=== PATIENT | female | born 1990 | race Caucasian/White ===

== ENCOUNTER 2017-06-06 19:13 | Emergency (ER) | payer MEDICARE, MEDICAID ==
[~2017-06-06] VITALS: Ht 160 cm; Wt 127.3 kg
[2017-06-06] MEDS ORDERED: SODIUM CHLORIDE FLUSH 10ML SYR IVF ONE (20:00)
[2017-06-06] MEDS ORDERED: SODIUM CHLORIDE 0.9% 1,000ML IV ONE (20:00)
[2017-06-06] MEDS ORDERED: KETOROLAC 30 MG/1 ML IVPush ONE (20:00)
[2017-06-06 20:27] LABS: HEMATOCRIT 43.5 % (34.6-47.8); HEMOGLOBIN 14.6 g/dL (11.7-16.4); WHITE BLOOD COUNT 14.1 x10^3/uL (3.4-10)
[2017-06-06 20:35] LABS: ASPARTATE AMINO TRANSFERASE 26 U/L (15-37); BLOOD UREA NITROGEN 18 mg/dL (7-18)
[2017-06-06] MEDS ORDERED: KETOROLAC 30 MG/1 ML ONE (20:52)
[2017-06-06] MEDS ORDERED: ONDANSETRON 2MG/ML, 2ML ONE (20:56)
[2017-06-06] MEDS ORDERED: MORPHINE SULFATE 4 MG/ML, 1ML ONE ×2 (20:56→22:49)
[2017-06-06] MEDS ORDERED: ONDANSETRON 2MG/ML, 2ML IVPush ONE (21:00)
[2017-06-06] MEDS: MORPHINE SULFATE 4 MG/ML, 1ML IVPush PRN ×2 (21:03→22:48)
[2017-06-06] MEDS ORDERED: OXYcodone/APAP 10/325MG TABLET ONE (23:50)
[2017-06-06 23:56] VITALS: BP 132/61
[2017-06-07] MEDS ORDERED: OXYcodone/APAP 10/325MG TABLET PO ONE
== END 2017-06-06 23:59 | disposition home or self-care (01) ==
LOC: ED 23:53
DX: S39.012A Strain of muscle, fascia and tendon of lower back, initial encounter (principal); R10.32 Left lower quadrant pain; J45.909 Unspecified asthma, uncomplicated; X58.XXXA Exposure to other specified factors, initial encounter; Y93.89 Activity, other specified; Y92.89 Other specified places as the place of occurrence of the external cause; Y99.9 Unspecified external cause status
CPT/HCPCS: 36415; 74177; 80053; 81003; 84703; 85025; 96361; 96374; 96375; 96376; 99285; J1885; J2405; J7030

== ENCOUNTER 2019-04-30 11:08 | Emergency (ER) | payer MEDICARE, MEDICAID ==
[~2019-04-30] VITALS: Ht 160 cm; Wt 105.0 kg
[2019-04-30 12:05] LABS: ALBUMIN 3.5 g/dL (3.4-5.0); ANION GAP 6 mmol/L (5-15); CALCIUM 8.7 mg/dL (8.5-10.1); CHLORIDE 113 mmol/L (98-107); CREATININE 0.81 mg/dL (0.55-1.02)
--- NOTE | 2019-04-30 12:31 | NUR ---
TO ROOM FROM LOBBY. NAD.
[2019-04-30] MEDS ORDERED: DIPHENHYDRAMINE 50 MG/ML, 1ML ONE (12:52)
[2019-04-30] MEDS ORDERED: KETOROLAC 30 MG/1 ML ONE (12:53)
[2019-04-30] MEDS ORDERED: METOCLOPRAMIDE 5 MG/ML, 2ML ONE (12:53)
[2019-04-30 13:00] LABS: BASOPHILS # (AUTO) 0.02 x10^3/uL (0-0.1); BASOPHILS % (AUTO) 0 % (0-1); EOSINOPHILS # (AUTO) 0.28 x10^3/uL (0-0.4); EOSINOPHILS % (AUTO) 3 % (1-7); LYMPHOCYTES # (AUTO) 2.05 x10^3/uL (1-3.4); LYMPHOCYTES % (AUTO) 24 % (22-44); MD NO; MEAN CORPUSCULAR HEMOGLOBIN 28.6 pg (27.0-34.8); MEAN CORPUSCULAR HGB CONC 32.6 g/dL (32.4-35.8); MEAN CORPUSCULAR VOLUME 87.6 fL (80-100); MEAN PLATELET VOLUME 9.1 fL (7.4-10.4); MONOCYTES # (AUTO) 0.56 x10^3/uL (0.2-0.8); MONOCYTES % (AUTO) 7 % (2-9); NEUTROPHILS # (AUTO) 5.78 x10^3/uL (1.8-6.8); NEUTROPHILS % (AUTO) 66 % (42-75); PLATELET COUNT 233 x10^3/uL (130-400); RED BLOOD COUNT 5.18 x10^6/uL (3.82-5.3); RED CELL DISTRIBUTION WIDTH 15.7 % (9.6-15.2)
[2019-04-30] MEDS ORDERED: DIPHENHYDRAMINE 50 MG/ML, 1ML IVPush ONE (13:00)
[2019-04-30] MEDS ORDERED: DIPHENHYDRAMINE 25 MG CAPSULE PO ONE (13:00)
[2019-04-30] MEDS ORDERED: KETOROLAC 30 MG/1 ML IVPush ONE (13:00)
[2019-04-30] MEDS ORDERED: METOCLOPRAMIDE 5 MG/ML, 2ML IVPush ONE (13:00)
[2019-04-30] MEDS ORDERED: METOCLOPRAMIDE 10MG TABLET PO ONE (13:00)
[2019-04-30] MEDS ORDERED: KETOROLAC 30 MG/1 ML IM ONE (13:00)
--- NOTE | 2019-04-30 13:04 | NUR ---
PT C/O LYNN FOR LAST WEEK WITH NO HX OF HEADACHES. PT REPORTS NAUSEA AND PHOTOPHOBIA. PT DENIES ANY UNILATERAL WAEKNESS, SLURRED SPEECH, OR BLURRED VISION. PT MEDICATED PER MD ORDER. PT IN CT NOW.
[2019-04-30] MEDS ORDERED: ACETAMINOPHEN 325 MG TABLET ONE (14:17)
[2019-04-30 14:32] VITALS: BP 119/71
== END 2019-04-30 14:35 | disposition home or self-care (01) ==
LOC: ED 14:33
DX: G43.111 Migraine with aura, intractable, with status migrainosus (principal)
CPT/HCPCS: 36415; 70450; 80048; 82040; 85025; 96374; 96375; 99284; J1200; J1885; J2765

== ENCOUNTER 2019-05-03 23:02 | Emergency (ER) | payer MEDICARE, MEDICAID ==
[~2019-05-03] VITALS: Ht 160 cm; Wt 103.0 kg
[2019-05-04] MEDS ORDERED: ONDANSETRON ODT 8 MG PO STA (00:42)
[2019-05-04 01:10] LABS: BASOPHILS # (AUTO) 0.05 x10^3/uL (0-0.1); BASOPHILS % (AUTO) 0 % (0-1); EOSINOPHILS % (AUTO) 1 % (1-7); LYMPHOCYTES # (AUTO) 2.71 x10^3/uL (1-3.4); LYMPHOCYTES % (AUTO) 19 % (22-44); MD NO; MEAN CORPUSCULAR HEMOGLOBIN 28.1 pg (27.0-34.8); MEAN CORPUSCULAR HGB CONC 32.9 g/dL (32.4-35.8); MEAN CORPUSCULAR VOLUME 85.6 fL (80-100); MONOCYTES # (AUTO) 0.93 x10^3/uL (0.2-0.8); MONOCYTES % (AUTO) 6 % (2-9); NEUTROPHILS % (AUTO) 74 % (42-75); PLATELET COUNT 308 x10^3/uL (130-400); RED BLOOD COUNT 5.65 x10^6/uL (3.82-5.3); RED CELL DISTRIBUTION WIDTH 15.4 % (9.6-15.2)
[2019-05-04] MEDS ORDERED: ONDANSETRON ODT 4 MG ONE (01:16)
[2019-05-04 01:21] LABS: CULTURE INDICATED? NO; MICROSCOPIC NOT IND
[2019-05-04 01:22] LABS: ALBUMIN 3.7 g/dL (3.4-5.0); ANION GAP 10 mmol/L (5-15); CHLORIDE 109 mmol/L (98-107)
--- NOTE | 2019-05-04 01:25 | NUR ---
assessment made. ERP at bedside.
[2019-05-04 01:28] LABS: ALANINE AMINOTRANSFERASE 21 U/L (12-78); ALKALINE PHOSPHATASE 87 U/L (45-117); BILIRUBIN,TOTAL 0.6 mg/dL (0.2-1.0); CREATININE 0.94 mg/dL (0.55-1.02); TOTAL PROTEIN 8.2 g/dL (6.4-8.2)
[2019-05-04] MEDS ORDERED: LORazepam 2 MG/ML, 1ML ONE (01:45)
[2019-05-04] MEDS ORDERED: LORazepam 2 MG/ML, 1ML IVPush ONE (02:00)
[2019-05-04] MEDS ORDERED: SODIUM CHLORIDE 0.9% 1,000ML IVBOLUS ONE (02:00)
--- NOTE | 2019-05-04 02:05 | NUR ---
IV placed. IVF hung. medicated for anxiety.
--- NOTE | 2019-05-04 03:00 | NUR ---
patient states feeling much better. LIANET jaimes initiated.
--- NOTE | 2019-05-04 03:10 | NUR ---
patient to bathroom with steady gait.
--- NOTE | 2019-05-04 03:28 | NUR ---
ERP at bedside for re-evaluation.
[2019-05-04 03:42] VITALS: BP 127/74
--- NOTE | 2019-05-04 03:42 | NUR ---
patient discharged with prescriptions and instruction. verbalized understanding.
== END 2019-05-04 03:44 | disposition home or self-care (01) ==
LOC: ED 23:59
DX: R11.2 Nausea with vomiting, unspecified (principal); R19.7 Diarrhea, unspecified; R10.84 Generalized abdominal pain; R51 Headache; F31.9 Bipolar disorder, unspecified; J45.909 Unspecified asthma, uncomplicated
CPT/HCPCS: 36415; 80053; 81003; 83690; 84703; 85025; 93005; 96361; 96374; 99284; J2060; J7030; Q0162

== ENCOUNTER 2019-09-07 07:40 | Day surgery (SDC) | payer MEDICARE, MEDICAID ==
[~2019-09-07] VITALS: Ht 160 cm; Wt 99.0 kg
[~2019-09-07 07:40] MED LIST: AMOX1TAB64 PO; BUPR300T4 PO; BUSP30TA PO; CYCL5TAB PO; DOXY100T23 PO; FERR-46 PO; ONDA4TAB13 SL; PANT20TA3 PO; QUET200T PO; RIZA10TA20 PO
[2019-09-07 08:09] VITALS: BP 106/70
[2019-09-07] MEDS ORDERED: LACTATED RINGERS 1,000 ML IV SCH (08:12)
[2019-09-07] MEDS ORDERED: LORA10TA75 PO (08:14)
[2019-09-07] MEDS ORDERED: LIDOCAINE-MPF 1%, 2ML INFIL ONE (08:30)
[2019-09-07 08:37] LABS: HCG UR SG 1.023 (1.003-1.030)
[2019-09-07] MEDS ORDERED: FENTANYL PF 100 MCG/2ML ONE (10:11)
[2019-09-07] MEDS ORDERED: CEFAZOLIN 1,000 MG ONE (11:16)
[2019-09-07] MEDS ORDERED: ONDANSETRON 2MG/ML, 2ML ONE (11:16)
[2019-09-07] MEDS ORDERED: DEXAMETHASONE 4 MG/ML, 1ML ONE (11:16)
[2019-09-07] MEDS ORDERED: SUCCINYLCHOLINE 20 MG/ML, 10ML ONE (11:16)
[2019-09-07] MEDS ORDERED: NEOSTIGMINE 1 MG/ML, 10ML ONE (11:16)
[2019-09-07] MEDS ORDERED: ROCURONIUM 10MG/ML,5ML ONE (11:16)
[2019-09-07] MEDS ORDERED: GLYCOPYRROLATE 0.2MG/1ML, 5ML ONE (11:16)
[2019-09-07] MEDS ORDERED: PROPOFOL 10 MG/ML, 20ML ONE (11:16)
[2019-09-07] MEDS ORDERED: OMNIPAQUE 350 MG/ML, 50 ML BOTTLE ONE (11:23)
== END 2019-09-07 12:45 | disposition home or self-care (01) ==
LOC: OUT 07:40
PROVIDERS: ATTEND Internal Medicine Geriatric Medicine
DX: K91.89 Other postprocedural complications and disorders of digestive system (principal); J45.909 Unspecified asthma, uncomplicated; G47.33 Obstructive sleep apnea (adult) (pediatric); F31.9 Bipolar disorder, unspecified; Z88.2 Allergy status to sulfonamides; Z88.8 Allergy status to other drugs, medicaments and biological substances; Z98.84 Bariatric surgery status
CPT/HCPCS: 43276; 74328; 81025; C1769; C1894; C2625; J0330; J1100; J2405; J2704; J2710; J3010; J7120; Q9967; J0690

== ENCOUNTER 2019-11-02 06:12 | Day surgery (SDC) | payer MEDICARE, MEDICAID ==
[~2019-11-02] VITALS: Ht 160 cm; Wt 100.2 kg
[~2019-11-02 06:12] MED LIST changes: -BUPR300T4 PO; +BUPR300T94 PO; +LORA10TA75 PO
[2019-11-02] MEDS ORDERED: TIZA2CAP PO (07:04)
[2019-11-02] MEDS ORDERED: HYDR-826 PO (07:05)
[2019-11-02] MEDS ORDERED: LACTATED RINGERS 1,000 ML IV SCH (07:17)
[2019-11-02 07:18] VITALS: BP 112/85
[2019-11-02 07:28] LABS: HCG UR SG 1.029 (1.003-1.030)
[2019-11-02] MEDS ORDERED: LIDOCAINE-MPF 1%, 2ML INFIL ONE (07:30)
[2019-11-02] MEDS ORDERED: FENTANYL PF 100 MCG/2ML ONE (08:01)
[2019-11-02] MEDS ORDERED: MIDAZOLAM 1 MG/ML, 2ML ONE (08:39)
[2019-11-02] MEDS ORDERED: PROPOFOL 10 MG/ML, 20ML ONE (08:51)
[2019-11-02] MEDS ORDERED: ROCURONIUM 10MG/ML,5ML ONE (08:51)
[2019-11-02] MEDS ORDERED: SUCCINYLCHOLINE 20 MG/ML, 10ML ONE (08:51)
[2019-11-02] MEDS ORDERED: DEXAMETHASONE 4 MG/ML, 1ML ONE (08:51)
[2019-11-02] MEDS ORDERED: ONDANSETRON 2MG/ML, 2ML ONE (08:51)
[2019-11-02] MEDS ORDERED: HYDROmorphone 1 MG/ML, 1ML INJ IVPush PRN (09:30)
[2019-11-02] MEDS ORDERED: HALOPERIDOL 5 MG/ML IV PRN (09:30)
[2019-11-02] MEDS ORDERED: LABETALOL 5MG/ML, 20ML IV PRN (09:30)
[2019-11-02] MEDS ORDERED: FENTANYL PF 100 MCG/2ML IV PRN (09:30)
[2019-11-02] MEDS ORDERED: PROCHLORPERAZINE 5 MG/ML, 2ML IV PRN (09:30)
[2019-11-02] MEDS ORDERED: hydrALAzine 20 MG/ML, 1ML IV PRN (09:30)
[2019-11-02] MEDS ORDERED: MEPERIDINE/PF 25MG/ML,1ML IVPush PRN (09:30)
[2019-11-02] MEDS ORDERED: OMNIPAQUE 350 MG/ML, 50 ML BOTTLE ONE (09:38)
== END 2019-11-02 11:00 | disposition home or self-care (01) ==
LOC: OUT 06:12
PROVIDERS: ATTEND Internal Medicine Geriatric Medicine
DX: K91.89 Other postprocedural complications and disorders of digestive system (principal); J45.909 Unspecified asthma, uncomplicated; F31.9 Bipolar disorder, unspecified; G47.33 Obstructive sleep apnea (adult) (pediatric); Z88.2 Allergy status to sulfonamides; Z88.8 Allergy status to other drugs, medicaments and biological substances; Z91.018 Allergy to other foods
CPT/HCPCS: 43275; 74328; 81025; C1769; J0330; J1100; J2250; J2405; J2704; J3010; J7120; Q9967

== ENCOUNTER 2019-12-07 18:24 | Emergency (ER) | payer MEDICARE, MEDICAID ==
[~2019-12-07] VITALS: Ht 160 cm; Wt 98.0 kg
[~2019-12-07 18:24] MED LIST changes: +HYDR-826 PO; +TIZA2CAP PO
[2019-12-07 18:28] VITALS: BP 126/83
--- NOTE | 2019-12-07 19:22 | NUR ---
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
[2019-12-07] MEDS ORDERED: LORazepam 1MG TABLET PO ONE (19:30)
[2019-12-07] MEDS ORDERED: LORazepam 1MG TABLET ONE (19:34)
--- NOTE | 2019-12-07 20:31 | NUR ---
TASK RN: DC EDUCATION PROVIDED, PT DEMONSTRATES UNDERSTANDING. PT AMBULATED STEADILY TO DC WITH RN AND FRIEND. FRIEND TO TRANSPORT PT HOME.
== END 2019-12-07 20:33 | disposition home or self-care (01) ==
LOC: ED 20:25
DX: F41.1 Generalized anxiety disorder (principal); G43.909 Migraine, unspecified, not intractable, without status migrainosus; J45.909 Unspecified asthma, uncomplicated; F32.9 Major depressive disorder, single episode, unspecified
CPT/HCPCS: 99283

== ENCOUNTER 2020-03-12 18:00 | Emergency (ER) | payer MEDICARE, MEDICAID ==
[~2020-03-12] VITALS: Ht 160 cm; Wt 106.0 kg
[2020-03-12] MEDS ORDERED: OXYcodone/APAP 10/325MG TABLET PO ONE (18:30)
[2020-03-12 18:42] LABS: BASOPHILS # (AUTO) 0.04 x10^3/uL (0-0.1); BASOPHILS % (AUTO) 0 % (0-1); EOSINOPHILS # (AUTO) 0.22 x10^3/uL (0-0.4); EOSINOPHILS % (AUTO) 2 % (1-7); LYMPHOCYTES # (AUTO) 2.49 x10^3/uL (1-3.4); LYMPHOCYTES % (AUTO) 26 % (22-44); MD NO; MEAN CORPUSCULAR HEMOGLOBIN 29.1 pg (27.0-34.8); MEAN CORPUSCULAR HGB CONC 33.4 g/dL (32.4-35.8); MEAN CORPUSCULAR VOLUME 87.3 fL (80-100); MEAN PLATELET VOLUME 8.4 fL (7.4-10.4); MONOCYTES # (AUTO) 0.57 x10^3/uL (0.2-0.8); MONOCYTES % (AUTO) 6 % (2-9); NEUTROPHILS # (AUTO) 6.29 x10^3/uL (1.8-6.8); NEUTROPHILS % (AUTO) 65 % (42-75); PLATELET COUNT 233 x10^3/uL (130-400); RED BLOOD COUNT 5.02 x10^6/uL (3.82-5.3); RED CELL DISTRIBUTION WIDTH 13.7 % (9.6-15.2)
[2020-03-12] MEDS ORDERED: OXYcodone/APAP 10/325MG TABLET ONE (18:47)
[2020-03-12 18:50] LABS: ALBUMIN 3.4 g/dL (3.4-5.0); ANION GAP 8 mmol/L (5-15); CALCIUM 8.5 mg/dL (8.5-10.1); CHLORIDE 113 mmol/L (98-107); CREATININE 1.05 mg/dL (0.55-1.02)
[2020-03-12 18:52] LABS: MICROSCOPIC INDICATED
--- NOTE | 2020-03-12 18:58 | NUR ---
PT MEDICATED PER MAR
[2020-03-12] MEDS ORDERED: CEFTRIAXONE 1,000 MG ONE (19:14)
[2020-03-12] MEDS ORDERED: LIDOCAINE-MPF 1%, 5ML ONE (19:14)
--- NOTE | 2020-03-12 19:22 | NUR ---
PT IN CT AT THIS TIME
[2020-03-12 19:27] VITALS: BP 134/83
[2020-03-12] MEDS ORDERED: CEFTRIAXONE 1,000 MG IM ONE (19:30)
== END 2020-03-12 20:17 | disposition home or self-care (01) ==
LOC: ED 20:02
DX: N10 Acute pyelonephritis (principal); G43.909 Migraine, unspecified, not intractable, without status migrainosus; J45.909 Unspecified asthma, uncomplicated
CPT/HCPCS: 36415; 74176; 80048; 81001; 82040; 84703; 85025; 87086; 96372; 99284; J0696

== ENCOUNTER 2020-03-16 15:58 | Emergency (ER) | payer MEDICARE, MEDICAID ==
[~2020-03-16] VITALS: Ht 160 cm; Wt 105.6 kg
[~2020-03-16 15:58] MED LIST changes: -PANT20TA3 PO; +PANT20TA4 PO
[2020-03-16 16:52] LABS: MICROSCOPIC AUTO
--- NOTE | 2020-03-16 16:57 | NUR ---
FAMILY SERVICE WORKER: PT TO ROOM FROM LOBBY AT THIS TIME. CIARRA
--- NOTE | 2020-03-16 17:08 | NUR ---
PT COMPLAINING OF MESSI FLANK PAIN. WAS DX WITH A UTI "A FEW DAYS AGO" AND TAKING OMNICEF. PER PT, SYMPTOMS NOT RESOLVING. PT PLACED ON MONITOR. URINE SENT FROM TRIAGE. WILL CONTINUE TO MONITOR PT.
[2020-03-16] MEDS ORDERED: DIAZEPAM 5 MG TABLET ONE (17:24)
[2020-03-16] MEDS ORDERED: DIAZEPAM 5 MG TABLET PO ONE (17:30)
[2020-03-16 17:59] VITALS: BP 117/64
--- NOTE | 2020-03-16 17:59 | NUR ---
PT STATES THAT SHE IS "FEELING MUCH BETTER AND READY TO GO HOME".
== END 2020-03-16 18:09 | disposition home or self-care (01) ==
LOC: ED 17:48
DX: M54.5 Low back pain (principal); R10.9 Unspecified abdominal pain; J45.909 Unspecified asthma, uncomplicated
CPT/HCPCS: 81001; 87086; 99283

== ENCOUNTER 2020-08-16 09:19 | Emergency (ER) | payer MEDICARE, MEDICAID ==
[~2020-08-16] VITALS: Ht 160 cm; Wt 111.0 kg
[2020-08-16] MEDS ORDERED: SODIUM CHLORIDE 0.9% 1,000ML IVBOLUS ONE (10:00)
[2020-08-16] MEDS ORDERED: DIPHENHYDRAMINE 50 MG/ML, 1ML IVPush ONE (10:00)
[2020-08-16] MEDS ORDERED: KETOROLAC 30 MG/1 ML IVPush ONE (10:00)
[2020-08-16] MEDS ORDERED: KETOROLAC 30 MG/1 ML ONE (10:00)
[2020-08-16] MEDS ORDERED: DIPHENHYDRAMINE 50 MG/ML, 1ML ONE (10:00)
[2020-08-16] MEDS ORDERED: SODIUM CHLORIDE FLUSH 10ML SYR IVF ONE (10:00)
[2020-08-16] MEDS ORDERED: METOCLOPRAMIDE 5 MG/ML, 2ML IVPush ONE (10:00)
[2020-08-16] MEDS ORDERED: METOCLOPRAMIDE 5 MG/ML, 2ML ONE (10:00)
[2020-08-16 10:58] VITALS: BP 133/84
--- NOTE | 2020-08-16 10:59 | NUR ---
PT UPRIGHT ON GURNEY. PT STATES "I FEEL SO MUCH BETTER, I AM READY TO GO HOME". PT DENIES ANY NEEDS AT THIS TIME. CALL LIGHT WITHIN REACH.
--- NOTE | 2020-08-16 11:08 | NUR ---
PatienT given discharge instructions and they have confirmed that they understand the instructions. Patient ambulatory with steady gait.
== END 2020-08-16 11:12 | disposition home or self-care (01) ==
LOC: ED 09:50
DX: G43.009 Migraine without aura, not intractable, without status migrainosus (principal)
CPT/HCPCS: 96361; 96374; 96375; 99284; J1200; J1885; J2765; J7030

== ENCOUNTER 2020-12-06 16:26 | Emergency (ER) | payer MEDICARE, MEDICAID ==
[~2020-12-06] VITALS: Ht 160 cm; Wt 111.3 kg
--- NOTE | 2020-12-06 18:03 | NUR ---
resource management planner: pt from lobby to room 13
--- NOTE | 2020-12-06 18:21 | NUR ---
PIV STARTED, 1ST SET OF BLOOD CULTURES DRAWN, 2ND SET DRAWN BY REAL ESTATE UTILIZATION OFFICER. PT RESTING ON [email or web address] W/ CALL LIGHT IN REACH AND SIDE RAILS UPX2. RESP EVEN AND UNLABORED, CIARRA. AWAITING ED EVAL.
[2020-12-06] MEDS ORDERED: ACETAMINOPHEN 500 MG TABLET ONE (18:27)
[2020-12-06] MEDS ORDERED: ACETAMINOPHEN 500 MG TABLET PO ONE (18:30)
[2020-12-06] MEDS ORDERED: SODIUM CHLORIDE FLUSH 10ML SYR IVF ONE (18:30)
[2020-12-06 18:35] LABS: BASOPHILS % (AUTO) 1 % (0-1); EOSINOPHILS % (AUTO) 2 % (1-7); LYMPHOCYTES % (AUTO) 27 % (22-44); MEAN CORPUSCULAR HEMOGLOBIN 29.9 pg (27.0-34.8); MEAN CORPUSCULAR HGB CONC 34.6 g/dL (32.4-35.8); MONOCYTES % (AUTO) 7 % (2-9); NEUTROPHILS % (AUTO) 64 % (42-75); PLATELET COUNT 212 x10^3/uL (130-400); RED BLOOD COUNT 5.52 x10^6/uL (3.82-5.3); RED CELL DISTRIBUTION WIDTH 14.3 % (9.6-15.2)
--- NOTE | 2020-12-06 18:36 | NUR ---
DR.VAN PEDROZA AT BEDSIDE.
[2020-12-06 18:47] LABS: ALANINE AMINOTRANSFERASE 35 U/L (12-78); ALBUMIN 3.7 g/dL (3.4-5.0); ANION GAP 8 mmol/L (5-15); CALCIUM 8.5 mg/dL (8.5-10.1); CHLORIDE 116 mmol/L (98-107); CREATININE 0.91 mg/dL (0.55-1.02)
[2020-12-06 18:49] LABS: ALKALINE PHOSPHATASE 84 U/L (45-117); BILIRUBIN,TOTAL 0.3 mg/dL (0.2-1.0); TOTAL PROTEIN 7.9 g/dL (6.4-8.2)
[2020-12-06] MEDS ORDERED: DIPHENHYDRAMINE 50 MG/ML, 1ML ONE (18:50)
[2020-12-06] MEDS ORDERED: PROCHLORPERAZINE 5 MG/ML, 2ML ONE (18:50)
[2020-12-06] MEDS ORDERED: KETOROLAC 30 MG/1 ML ONE (18:50)
--- NOTE | 2020-12-06 18:58 | NUR ---
PT MEDICATED PER EMAR. PT RESTING ON [employer] W/ CALL LIGHT IN REACH AND SIDE RAILS UPX2. RESP EVEN AND UNLABORED, CIARRA.
[2020-12-06] MEDS ORDERED: PROCHLORPERAZINE 5 MG/ML, 2ML IVPush ONE (19:00)
[2020-12-06] MEDS ORDERED: DIPHENHYDRAMINE 50 MG/ML, 1ML IVPush ONE (19:00)
[2020-12-06] MEDS ORDERED: KETOROLAC 30 MG/1 ML IVPush ONE (19:00)
[2020-12-06 19:04] LABS: MD NO
--- NOTE | 2020-12-06 19:09 | NUR ---
REPORT GIVEN TO IRENE ZAZUETA. PT RESTING ON [employer] W/ CALL LIGHT IN REACH AND SIDE RAILS UPX2. RESP EVEN AND UNLABORED, CIARRA.
--- NOTE | 2020-12-06 19:10 | NUR ---
WITH ASSESSMENT LYNN IMPROVED TO 0/10 ERP MAD AWARE
[2020-12-06 20:18] VITALS: BP 113/79
== END 2020-12-06 20:20 | disposition home or self-care (01) ==
LOC: ED 18:00
DX: G43.909 Migraine, unspecified, not intractable, without status migrainosus (principal); Z88.2 Allergy status to sulfonamides; Z88.8 Allergy status to other drugs, medicaments and biological substances; Z88.1 Allergy status to other antibiotic agents
CPT/HCPCS: 36415; 80053; 83605; 85025; 96374; 96375; 99284; J0780; J1200; J1885